=== PATIENT | male | born 1970 | race Caucasian/White ===

== ENCOUNTER 2017-10-09 09:13 | Outpatient (CLI) | payer OTHER ==
--- NOTE | 2017-10-10 10:53 | Diagnostic Imaging Report ---
Indication: Thyroid nodule Technique: Grayscale and duplex images of the thyroid Comparison: none Findings: Right thyroid lobe measures 4.4 cm length x 0.6 cm AP. Left thyroid lobe measures 4.1 cm length x 0.2 cm AP. Both thyroid lobes demonstrate diffusely heterogeneous echogenicity, with multiple ill-defined nodules diffusely bilaterally, no definite dominant discrete nodule. Impression: Diffusely heterogeneous multinodular thyroid, may indicate early multinodular goiter
== END 2017-10-09 11:13 | disposition home or self-care (01) ==
LOC: ULS 09:13
DX: E04.1 Nontoxic single thyroid nodule (principal)
CPT/HCPCS: 76536